=== PATIENT | female | born 1950 | race Caucasian/White ===

== ENCOUNTER 2016-12-05 01:00 | Emergency (ER) | payer MEDICARE, BC ==
[~2016-12-05 01:00] MED LIST: ACETAMINOPHEN PO; ALPRAZOLAM PO; AMBIEN PO; ERYTHROMYC3.5 GM OPT OD; LOVENOX SUBQ; PHENERGAN IVP; VICODIN 5/500 T1 TAB PO
[2016-12-05 02:35] LABS: INR 3.2; PROTHROMBIN TIME (PATIENT) 35.2 SECONDS (9.6-11.5)
== END 2016-12-05 03:15 | disposition home or self-care (01) ==
LOC: CED 01:00
PROVIDERS: Emergency Medicine
DX: M79.604 Pain in right leg (principal); R06.02 Shortness of breath; Z86.718 Personal history of other venous thrombosis and embolism; Z86.711 Personal history of pulmonary embolism; Z79.01 Long term (current) use of anticoagulants; Z88.5 Allergy status to narcotic agent; Z88.8 Allergy status to other drugs, medicaments and biological substances; Z79.899 Other long term (current) drug therapy
CPT/HCPCS: 36415; 85610; 94640; 99283

== ENCOUNTER → 2016-12-06 | Outpatient (CLI) | payer MEDICARE, BC ==
--- NOTE | ~2016-12-06 | US85 ---
[facility] A Service of [facility] RADIOLOGY TEXT RESULTS PATIENT: CHEY WAY V LOCATION: [facility] : [birth year] UNIT #: [id number] AGE: [address]: Kristian Ngo MD SEX: F ORDER DR: [id number] [facility] [address] [place], [place] [address] [id number] O MR#: [id number] Acc #: [id number] NAME: CHEY WAY : 1950 SEX: F STUDY DATE/TIME: 12/06/2016 14:54 UNIT: [facility] ROOM: STUDY DESCRIPTION: [facility] Attending Physician: Kristian Ngo M.D. Ordering Physician: Kristian Ngo M.D. MEDICAL IMAGING REPORT This report is preliminary unless electronic signature is present EXAM Right lower extremity venous duplex, 12/06/2016 HISTORY Right lower extremity pain for 3 weeks. Evaluate for deep vein thrombosis. TECHNIQUE Venous ultrasound examination of the right lower extremity was performed using grayscale, spectral Doppler and color flow Doppler imaging. FINDINGS The examination is negative. There is no evidence of right lower extremity deep venous thrombus from the groin to the lower calf. Visualized greater saphenous vein is also patent. IMPRESSION Negative examination. No evidence of right lower extremity deep venous thrombosis. Dictated by... Cortez Washington M.D. THIS IS AN ELECTRONICALLY VERIFIED REPORT Cortez Washington M.D. at 12/06/2016 5:14 PM Shirley TD: 12/06/2016 15:47 JOB #: [id number] MEDICAL IMAGING REPORT Page 1 of 1 COPY
== END | disposition home or self-care (01) ==
LOC: CGUS 14:35
DX: M79.604 Pain in right leg (principal)
CPT/HCPCS: 93971

== ENCOUNTER → 2017-01-10 | Outpatient (CLI) | payer MEDICARE, BC ==
--- NOTE | ~2017-01-10 | CR63 ---
[facility] A Service of [facility] RADIOLOGY TEXT RESULTS PATIENT: CHEY WAY V LOCATION: [facility] : 48 UNIT #: [id number] AGE: [address]: Pete Ibrahim MD SEX: F ORDER DR: [id number] [facility] [address] [place], [place] [address] [id number] O MR#: [id number] Acc #: [id number] NAME: CHEY WAY : 1950 SEX: F STUDY DATE/TIME: 01/10/2017 13:22 UNIT: [facility] ROOM: STUDY DESCRIPTION: CR Chest 2 View Attending Physician: Pete Ibrahim M.D. Referring Physician: Pete Ibrahim M.D. Ordering Physician: Pete Ibrahim M.D. Primary Care Physician: Ulisses Kelley M.D. MEDICAL IMAGING REPORT This report is preliminary unless electronic signature is present EXAM Chest 01/10/2017. HISTORY 66-year-old female with pain between shoulder blades. Numbness right side of torso and face, weight loss, short of breath. Symptoms several weeks duration, progressively worsening. Patient is past smoker with previous open-heart surgery. History of asthma. COMPARISON Chest 01/26/2003. FINDINGS PA and lateral chest views show normal heart size. Previous open-heart surgery and coronary stenting noted. Lungs are hyperinflated with flattened diaphragms. Discoid atelectasis near the right costophrenic angle. Single healed left rib fracture. I see no infiltrate. There are no effusions and no lung mass. Surgical clips project at the gastroesophageal junction. IMPRESSION Previous open-heart surgery and bypass with coronary stenting also noted. Generalized pulmonary hyperinflation consistent with COPD. No acute chest finding. Dictated by... Beni Brock M.D. THIS IS AN ELECTRONICALLY VERIFIED REPORT Beni Brock M.D. at 01/11/2017 9:37 AM ALISHA/candelaria [facility] A Service of [facility] RADIOLOGY TEXT RESULTS PATIENT: CHEY WAY V LOCATION: [facility] #: [id number] : [birth year] UNIT #: [id number] AGE: [address]: Pete Ibrahim MD SEX: F ORDER DR: TD: 01/11/2017 09:22 JOB #: [id number] MEDICAL IMAGING REPORT Page 1 of 1 COPY
== END | disposition home or self-care (01) ==
LOC: CRAD 13:08
DX: R06.02 Shortness of breath (principal); M25.519 Pain in unspecified shoulder; R91.8 Other nonspecific abnormal finding of lung field; Z95.1 Presence of aortocoronary bypass graft; Z95.5 Presence of coronary angioplasty implant and graft
CPT/HCPCS: 71020